=== PATIENT | female | born 1985 | race Caucasian/White ===

== ENCOUNTER 2025-01-13 18:55 | Emergency (ER) | payer MEDICAID, SELFPAY ==
[2025-01-13] VITALS (16 sets, daily range): BP systolic 113–146; BP diastolic 54–95; PULSE 63–84; RESP 18; TEMP 36.8; O2SAT 96–100
--- NOTE | 2025-01-13 18:45 | RT.EKG_ITS ---
APPROVED REPORT Exam: Resting ECG Reason for Exam: Chest pain Patient Location: E HR:73 bpm ECG Measurements Heart Rate 73 AXIS SC 171 P 39 QRSd 77 QRS -2 QT 360 T -2 QTc 397 Conclusion Sinus rhythm...normal P axis, V-rate 60- 99
--- NOTE | 2025-01-13 19:07 | W.ED.GENAD ---
Discharge Plan Disposition Patient Disposition: Home Condition: Stable Discharge Details Clinical Impression: Chest pain Primary Care Provider: None,None ED Provider: Terrell Ball Discharge Instructions Additional Instructions: Your blood work did not show any concerning findings at this time. You could be suffering from a viral illness. Try to drink plenty fluids to stay hydrated. Follow-up with your primary care provider as needed. If you feel significantly more ill or have new symptoms such as persistent vomiting return to emergency department for reevaluation. HPI General Mode of arrival: EMS. Date/Time Provider Initiated Documentation: 01/13/25 19:02. Limitations to Documentation: no limitations. Information obtained by: patient. History of Present Illness 39 year old F presents to the emergency department with the chief complaint of chest pain, sore throat, body aches, anxiety, described as moderate, Patient started experiencing this week(s) (1) and it has been constant. No relieving factors improve symptom(s), No exacerbating factors reported . Patient notes no other symptoms.. Patient did receive the following treatments prior to arrival, none Related Data Allergies Allergy/AdvReac Type Severity Reaction Status Date / Time gabapentin Allergy Nausea Verified 01/13/25 19:05 ibuprofen (From Motrin) Allergy Nausea Verified 01/13/25 19:05 ranitidine (From Zantac) Allergy Nausea Verified 01/13/25 19:05 adhesive tape AdvReac Skin Rash Verified 01/13/25 19:05 aspirin AdvReac Other (See Verified 01/13/25 19:05 Comment) morphine AdvReac Other (See Verified 01/13/25 19:05 Comment) General Stated Complaint: Chest Pain LINDA: 3 Review of Systems All systems reviewed & are unremarkable except as noted in HPI and below Constitutional Constitutional: Denies chills, Denies fever(s) and Denies weakness ENT Ears, Nose, Mouth, and Throat: Reports sore throat Cardiovascular Cardiovascular: Reports chest pain and Denies dyspnea Respiratory Respiratory: Denies cough and Denies dyspnea Gastrointestinal Gastrointestinal: Reports nausea and Denies vomiting Neurologic Neurologic: Denies weakness Exam Const General: no acute distress Orientation: alert HENMT Head: normal to inspection Ears: external ears normal General nose exam: external nose normal Mouth: moist mucous membranes Eyes General: appearance normal, both eyes and all related structures Neck Neck: normal visual inspection Resp Effort & Inspection: normal respiratory effort and able to speak in complete sentences Auscultation: clear to auscultation bilaterally Cardio Jugular venous pressure: no JVD Rate: regular rate Skin General skin exam: no rashes or lesions noted Neuro General: patient alert and patient oriented x3 Extrem General: normal to inspection Psych Mental Status: mental status grossly normal Course Vital Signs Vital signs: Vital Signs Temperature 36.8 C 01/13/25 18:55 Pulse 79 01/13/25 18:55 Respiratory Rate 18 01/13/25 18:55 Blood Pressure 138/94 H 01/13/25 18:55 Pulse Oximetry 99 01/13/25 18:55 Temperature 36.8 C 01/13/25 18:55 Temperature Source Oral 01/13/25 18:55 Pulse 79 01/13/25 18:55 Respiratory Rate 18 01/13/25 18:55 Blood Pressure 138/94 H 01/13/25 18:55 Pulse Oximetry 99 01/13/25 18:55 Oxygen Delivery Method Room Air 01/13/25 18:55 Oxygen Flow Rate 0 01/13/25 18:55 Pain Level 10 01/13/25 18:55 Medical Decision Making 3-year-old female states she has been homeless for several years and recently moved to the area from the [facility], who states that she has a history of anxiety, IBS who comes in with 1 to 2 days of intermittent chest pain, sore throat, body aches and chills. Also notes some nausea. No severe abdominal pain or vomiting. She is speaking in full sentences and appears anxious. She has a normal posterior pharynx with a midline uvula. No submandibular swelling, no pain over the hyoid or restricted neck movements. She has no meningismus, clear lung sounds, soft nontender abdomen. Unclear etiology of her symptoms will check CBC, CMP and troponins as well as a Fluvid. Given her lack of abdominal tenderness I doubt intra-abdominal abdominal pathology such as small bowel obstruction and do not feel emergent imaging of her abdomen is indicated. She has no tachycardia, PERC negative so I doubt PE. No findings on exam to suggest entities such as retropharyngeal abscess, epiglottitis or peritonsillar abscess. Patient sleeping on reassessment and awakens easily to voice. Labs show no emergent findings. She states that she is only in the area for 80 days and does not want to be set up with a primary care in the area. She will follow-up with her PCP as needed and return precautions given. Differential Diagnosis Differential Diagnosis: anxiety, ibs, flu Lab Data Lab results reviewed: Yes I reviewed the patient's lab results. ECG Data Attestation: I personally reviewed and interpreted this ECG (s) as follows: Prior ECG tracings: not available for review Interpretation: sinus rate of 73 no stemi PFSH All Active Problems (Updated 01/13/25 @ 20:48 by Terrell Ball MD) Chest pain (Acute) Social History Smoking/Tobacco Use Status: Never Smoking risk assessment performed?: Yes Alcohol Intake: never Drug use: Never Substance use type: does not use Housing: homeless Do you feel safe at home: Yes Do you feel safe in your relationship?: Yes
[2025-01-13 19:33] LABS: Abs Immature Grans 0.02 10^3/uL (0.0-0.06); HCT 37.6 % (36.0-46.0); HGB 12.7 g/dL (11.2-15.7); Immature Grans % 0.3 %; MCH 34.4 pg (27.0-33.0); MCHC 33.8 % (32.0-36.0); MCV 102 fL (80-95); MPV 9.6 fL (8.0-11.0); Platelet Count 292 10^3/uL (130-400); RBC 3.69 10^6/uL (3.93-5.22); RDW 11.4 % (11.7-14.6); RDW-SD 43.1 fL; WBC 7.27 10^3/uL (4.4-10.8)
[2025-01-13] MEDS: Droperidol 5 MG/2 ML VIAL 2.5 MG IVP (19:44)
[2025-01-13 19:48] LABS: ALT 12 U/L (14-59); AST 9 U/L (15-37); Albumin 3.5 g/dL (3.4-5.0); Alkaline Phosphatase 64 U/L (46-116); Anion Gap 9.2 mmol/L (3-11); BUN 9 mg/dL (7-18); Bilirubin, Total 0.2 mg/dL (0.2-1.0); CO2 26.8 mmol/L (21.0-32.0); Calcium 8.1 mg/dL (8.5-10.1); Chloride 105 mmol/L (98-107); Glucose 90 mg/dL (74-106); Magnesium 2.6 mg/dL (1.8-2.4); Potassium 3.3 mmol/L (3.5-5.1); Sodium 141 mmol/L (136-145); Total Protein 7.0 g/dL (6.4-8.2); Troponin I 4 ng/L (<or=51)
[2025-01-13 19:54] LABS: HCG Qual (Serum) Negative
[2025-01-13 20:08] LABS: COVID-19 PCR Negative (Negative); RSV PCR Negative (Negative)
== END 2025-01-13 21:49 | disposition home or self-care (01) ==
PROVIDERS: Emergency Provider Emergency Medicine
DX: R07.9 Chest pain, unspecified (principal); J02.9 Acute pharyngitis, unspecified
CPT/HCPCS: 99284 ×2; 96374; 80053; 87637; 93005; 83735; 84484; 84703; 85025; 93010; J1790

== ENCOUNTER 2025-01-20 13:36 | Emergency (ER) | payer MEDICAID, SELFPAY ==
[2025-01-20 13:47] VITALS: BP 130/88; PULSE 88; RESP 20; TEMP 37.2; O2SAT 96
--- NOTE | 2025-01-20 14:00 | RT.EKG_ITS ---
APPROVED REPORT Exam: Resting ECG Reason for Exam: Chest Pain Patient Location: E HR:82 bpm ECG Measurements Heart Rate 82 AXIS WI 173 P 58 QRSd 76 QRS 38 QT 362 T 26 QTc 424 Conclusion Sinus rhythm...normal P axis, V-rate 60- 99 No Occlusion AR
[2025-01-20 14:01] VITALS: BP 130/88; PULSE 88; RESP 20; TEMP 37.2; O2SAT 96
--- NOTE | 2025-01-20 14:21 | W.ED.GENAD ---
Discharge Plan Disposition Patient Disposition: Home Discharge Details Clinical Impression: Nausea & vomiting, Ketonuria Primary Care Provider: None,None ED Provider: Mitul Sullivan [place] Meds and New Rx's Prescriptions: Continued polyethylene glycol 3350 [ClearLax] 17 gram/dose powder 17 g PO DAILY Elmiron 100 mg capsule 100 mg PO TID acyclovir 400 mg tablet 400 mg PO BID olanzapine 2.5 mg tablet 2.5 mg PO QHS bupropion HCl 100 mg tablet sustained-release 12 hr 100 mg PO QHS pantoprazole 20 mg tablet,delayed release (DR/EC) 20 mg PO QAM hyoscyamine sulfate 0.375 mg tablet extended release 12 hr 0.375 mg PO Q12H hydrocortisone 2.5 % cream 1 applic topical DAILY PRN albuterol sulfate [Ventolin HFA] 90 mcg/actuation HFA aerosol inhaler 2 inh inhalation Q8H PRN ferrous sulfate 325 mg (65 mg iron) tablet,delayed release (DR/EC) 325 mg PO Q OTHER DAY fluticasone propionate [Allergy Relief (fluticasone)] 50 mcg/actuation spray,suspension 1 spray intranasal DAILY PRN Rx Instructions: administer into each nostril acetaminophen 500 mg capsule 500 mg PO QID PRN escitalopram oxalate 10 mg tablet 10 mg PO DAILY budesonide-formoterol [Symbicort] 80-4.5 mcg/actuation HFA aerosol inhaler 1 inh inhalation ONCE Lactobacillus acidophilus 1 billion cell capsule 1,000 mmu cells PO DAILY Discharge Instructions Additional Instructions: You were seen in the emergency department for your nausea and bodyaches. Your swabs showed that you do not have COVID, flu, nor RSV. You likely have another respiratory virus. You should have your count repeated. Please return if you develop chest pain that does not stop or if you have any other concern. You will be contacted to establish care with a primary care. Stand Alone Forms: Portal Information Discharge Data Discharge Date/Time-TO BE ENTERED AT DEPARTURE: 01/20/25 16:04 HPI General Date/Time Provider Initiated Documentation: 01/20/25 13:52. HPI Narrative: MDM This is an overall well-appearing normothermic and not tachycardic 39-year-old female with nausea vomiting chest pain which she will undergo troponin testing to assess for cardiac injury. ECG shows narrow complex rhythm. There are no T wave inversioins. Her intervals are within normal limits. No significant right upper quadrant tenderness to suggest acute cholecystitis. She lacks significant risk factors for ACS as she has no history of hypertension or hyperlipidemia or diabetes. Anticipate if her labs are reassuring she will be appropriate for outpatient follow-up. She is PERC negative so I did not find a D-dimer. No significant headache to suggest increased risk of subdural empyema. She has no crepitance to suggest increased risk for esophageal rupture. She has a soft nontender abdomen making my suspicion low for appendicitis. No epigastric tenderness acute pancreatitis. No significant posterior oropharynx erythema to suggest strep pharyngitis. Good range of motion making my suspicious low for retropharyngeal abscess. Uvula midline so doubt peritonsillar abscess. No pain out of proportion to suggest necrotizing soft tissue infection. Given body aches and cough will swab for COVID influenza and RSV. Not hypotensive nor a dialysis patient making my suspicion low for cardiac tamponade. Equal breath sounds and no chest trauma to suggest increased risk for pneumothorax. Patient does not have significant wheeze to suggest benefit for nebulization treatment. Will prescribe outpatient inhaler. Bilateral TMs clear so I am not suspicious for acute acute otitis media. 3 PM Comprehensive metabolic panel with no JADON. Mild hyperglycemia but no anion gap. Normal bicarbonate Test not consistent with DKA. Normal reassuring lipase. CBC: Anemia thrombocytopenia and leukocytosis. Negative hCG. Reassuring normal initial troponin. Chest x-ray with no acute cardiopulmonary process. 3:45 PM Urinalysis with trace ketonuria but nitrite leuk esterase negative not consistent with UTI. 3:57 PM Patient had a reassuring repeat troponin within normal delta. We discussed that she should return to the ED if she could not stop vomiting or if she had any syncopal episodes. She understood her indications. I have asked healthy coordinator Yvette to have her establish with primary care provider. Will discharge her with a short course of ondansetron needed for nausea. Repeat reassuring vitals. HPI The patient presents for evaluation of cough, sore throat, and earache. She has been experiencing a persistent cough for the past 4 days, accompanied by vomiting and an inability to consume food. She also reports a sore throat and earaches. She has not had any fevers or colds. She is not aware of any sick contacts. She has a known history of asthma but reports no previous instances of blood clots in her legs or lungs. She is not currently on any anticoagulant therapy. Supplemental Information She has a scheduled appointment with her [employer] tomorrow. She has a history of irritable bowel syndrome (IBS) and genital herpes. Exam General: Well-appearing in no acute distress speaking in complete sentences. Head: Normocephalic, atraumatic. Eye: Extraocular eye movements intact. No conjunctival injection. No scleral icterus. Ear, nose, mouth, throat: Grossly normal inspection. Normal voice, handling secretions normally. Bilateral TMs clear. No significant posterior oropharynx erythema. Uvula midline. Neck: Trachea midline. Good range of motion of the neck. Cardiovascular: Well-perfused distal extremities. Regular rate and rhythm. Respiratory: Nonlabored respiration. Clear lungs bilaterally Gastrointestinal: Nondistended abdomen. Soft. Nontender. No rebound. Guarding. Musculoskeletal: No edema. Moving all 4 extremities spontaneously. Skin: Normal for age and race, grossly normal temperature and turgor. No acute rash. Neurologic: Alert and appropriate, no apparent acute deficits. Psychiatric: Mood and manner are appropriate. Grooming and personal hygiene are appropriate. Related Data Home Medications Medication Instructions Recorded Confirmed Lactobacillus acidophilus 1 1,000 mmu cells PO DAILY 01/13/25 01/20/25 billion cell capsule acetaminophen 500 mg capsule 500 mg PO QID PRN 01/13/25 01/20/25 acyclovir 400 mg tablet 400 mg PO BID 01/13/25 01/20/25 albuterol sulfate 90 mcg/actuation 2 inh inhalation Q8H PRN 01/13/25 01/20/25 aerosol inhaler (Ventolin HFA) budesonide-formoterol HFA 80 1 inh inhalation ONCE 01/13/25 01/20/25 mcg-4.5 mcg/actuation aerosol inhaler (Symbicort) bupropion HCl 100 mg tablet,12 hr 100 mg PO QHS 01/13/25 01/20/25 sustained-release escitalopram oxalate 10 mg tablet 10 mg PO DAILY 01/13/25 01/20/25 ferrous sulfate 325 mg (65 mg 325 mg PO Q OTHER DAY 01/13/25 01/20/25 iron) tablet,delayed release fluticasone propionate 50 1 spray intranasal DAILY PRN 01/13/25 01/20/25 mcg/actuation nasal spray,suspension (Allergy Relief (fluticasone)) hydrocortisone 2.5 % topical cream 1 applic topical DAILY PRN 01/13/25 01/20/25 hyoscyamine sulfate 0.375 mg 0.375 mg PO Q12H 01/13/25 01/20/25 tablet,extended release,12 hr olanzapine 2.5 mg tablet 2.5 mg PO QHS 01/13/25 01/20/25 pantoprazole 20 mg tablet,delayed 20 mg PO QAM 01/13/25 01/20/25 release pentosan polysulfate sodium 100 mg 100 mg PO TID 01/13/25 01/20/25 capsule (Elmiron) polyethylene glycol 3350 17 17 g PO DAILY 01/13/25 01/20/25 gram/dose oral powder (ClearLax) Allergies Allergy/AdvReac Type Severity Reaction Status Date / Time gabapentin Allergy Nausea Verified 01/13/25 19:05 ibuprofen (From Motrin) Allergy Nausea Verified 01/13/25 19:05 ranitidine (From Zantac) Allergy Nausea Verified 01/13/25 19:05 adhesive tape AdvReac Skin Rash Verified 01/13/25 19:05 aspirin AdvReac Other (See Verified 01/13/25 19:05 Comment) morphine AdvReac Other (See Verified 01/13/25 19:05 Comment) General Stated Complaint: RespSymp LINDA: 3 Course Vital Signs Vital signs: Vital Signs Temperature 37.2 C 01/20/25 13:47 Pulse 88 01/20/25 13:47 Respiratory Rate 20 01/20/25 13:47 Blood Pressure 130/88 01/20/25 13:47 Pulse Oximetry 96 01/20/25 13:47 Temperature 37.2 C 01/20/25 14:01 Pulse 88 01/20/25 14:01 Respiratory Rate 20 01/20/25 14:01 Respiratory Effort Normal 01/20/25 14:01 Respiratory Depth Normal 01/20/25 14:01 Blood Pressure 130/88 01/20/25 14:01 Blood Pressure Position Sitting 01/20/25 14:01 Pulse Oximetry 96 01/20/25 14:01 Oxygen Delivery Method Room Air 01/20/25 14:01 Oxygen Flow Rate 0 01/20/25 14:01 PFSH All Active Problems (Updated 01/20/25 @ 15:47 by Mitul Sullivan MD) Ketonuria (Acute) Nausea & vomiting (Acute) Chest pain (Acute) Social History Smoking/Tobacco Use Status: Never Smoking risk assessment performed?: Yes Alcohol Intake: never Drug use: Never Substance use type: does not use Housing: homeless Do you feel safe at home: Yes Do you feel safe in your relationship?: Yes
--- NOTE | 2025-01-20 14:31 | DI.RAD_ITS ---
Exam(s) XR CHEST 2V PA LATERAL EXAM: XR CHEST 2V PA LATERAL CLINICAL HISTORY: Chest pain TECHNIQUE: 2D digital imaging was performed of the chest. Two images were obtained. PA and lateral views were obtained. COMPARISON: No exams were available for comparison FINDINGS: MEDIASTINUM: Normal. HEART: Normal. PULMONARY VASCULATURE: Normal. LUNGS: Clear. PLEURAL SPACE: No pleural effusion or pneumothorax. BONE:Within normal limits for the patient's age. OTHER FINDINGS:Normal. IMPRESSION: No acute pulmonary findings. DATA REPOSITORY: RADIATION DOSE DELIVERED:
[2025-01-20 14:32] LABS: Abs Immature Grans 0.01 10^3/uL (0.0-0.06); HCT 35.1 % (36.0-46.0); HGB 11.8 g/dL (11.2-15.7); Immature Grans % 0.1 %; MCH 34.4 pg (27.0-33.0); MCHC 33.6 % (32.0-36.0); MCV 102 fL (80-95); MPV 10.1 fL (8.0-11.0); Platelet Count 259 10^3/uL (130-400); RBC 3.43 10^6/uL (3.93-5.22); RDW 11.2 % (11.7-14.6); RDW-SD 42.6 fL; WBC 8.09 10^3/uL (4.4-10.8)
[2025-01-20] MEDS: Normal Saline 500 ML IV (14:34)
[2025-01-20] MEDS: Mylanta Suspension 30 ML CUP PO (14:37)
[2025-01-20] MEDS: Ondansetron 4 MG/2 ML VIAL IVP (14:38)
[2025-01-20] MEDS: Famotidine 20 MG/2 ML VIAL 40 MG IVP (14:38)
[2025-01-20] MEDS: Budesonide/Formoterol 160/4.5 6 GM 60 PUFF INH IH (14:44)
[2025-01-20 14:51] LABS: ALT 11 U/L (14-59); AST 11 U/L (15-37); Albumin 3.2 g/dL (3.4-5.0); Alkaline Phosphatase 66 U/L (46-116); Anion Gap 10.3 mmol/L (3-11); BUN 11 mg/dL (7-18); Bilirubin, Total 0.1 mg/dL (0.2-1.0); CO2 24.7 mmol/L (21.0-32.0); Calcium 7.4 mg/dL (8.5-10.1); Chloride 108 mmol/L (98-107); Glucose 110 mg/dL (74-106); Lipase 31 U/L (<78); Potassium 3.5 mmol/L (3.5-5.1); Sodium 143 mmol/L (136-145); Total Protein 6.4 g/dL (6.4-8.2); Troponin I 6 ng/L (<or=51)
[2025-01-20 14:57] LABS: HCG Qual (Serum) Negative
[2025-01-20 15:27] LABS: COVID-19 PCR Negative (Negative); RSV PCR Negative (Negative)
[2025-01-20 15:41] LABS: Glucose Negative (Negative)
[2025-01-20 15:55] LABS: Troponin I 6 ng/L (<or=51)
[2025-01-20 16:00] VITALS: BP 140/87; PULSE 67; RESP 16; O2SAT 98
[2025-01-20] MEDS: Ondansetron O.D.T. 4 MG TABEF, 3 TABS/BTL PO (16:05)
== END 2025-01-20 16:04 | disposition home or self-care (01) ==
PROVIDERS: Emergency Provider Emergency Medicine
DX: R11.2 Nausea with vomiting, unspecified (principal); R82.4 Acetonuria; R07.89 Other chest pain; J98.8 Other specified respiratory disorders
CPT/HCPCS: 99283; 99284; 96374; 96375; 36415; 80053; 83690; 87637; 93005; 71046; 81003; 84484; 84703; 85025; 93010; J2405

== ENCOUNTER 2025-01-21 10:30 | Outpatient (REF) | payer MEDICAID, SELFPAY ==
--- NOTE | 2025-01-21 09:56 | PAPFT_PTH ---
PATIENT: Caroline Ramos LOC: [facility] U#:[id number] AGE/SX: 39/F ROOM: RE01/21/[address]: Mehnaz Pemberton DO : 1985 BED: DIS: 01/21/2025 SPEC #: [id number] RECD: 01/21/25 13:02 STATUS: CHENTE RE #: [id number] JOEL: 01/21/25 09:[address]: Mehnaz Pemberton DEPT: [facility] Cytology RECD BY: Shannon Tobias ENTERED: 01/21/25 13:02 SP TYPE: PAPFT OTHR DR: None Tissues: 1 - CX/ENDOCX FOR PAP SMEARS Procedures: PAP THIN PREP/UVM Screening HPV DNA PROBE Comments: [id number] (HPV 16 & 18/45) (CHLAMYDIA/GC)
[2025-01-22 11:48] LABS: Chlamydia Result Negative (Negative); GC Result Negative (Negative)
== END 2025-01-21 10:31 | disposition home or self-care (01) ==
LOC: LBN 10:30
PROVIDERS: Visit Provider Obstetrics & Gynecology
DX: Z12.4 Encounter for screening for malignant neoplasm of cervix (principal)
CPT/HCPCS: 87491; 87591; 88142; 87624

== ENCOUNTER 2025-03-05 13:52 | Emergency (ER) | payer MEDICAID, SELFPAY ==
[2025-03-05 13:57] VITALS: BP 142/93; PULSE 76; RESP 16; TEMP 37; O2SAT 97
--- NOTE | 2025-03-05 14:00 | DI.US_ITS ---
Exam(s) US PELVIS TRANSVAGINAL EXAM: US PELVIS TRANSVAGINAL CLINICAL HISTORY: left adnexal pain, vaginal bleeding TECHNIQUE: Transabdominal and transvaginal imaging was performed using standard protocol. COMPARISON: No exams were available for comparison FINDINGS: The bladder is unremarkable. UTERUS: Anteverted. 7.6 x 3.8 x 4.3 cm Endometrium: 6 mm Myometrium: No evidence of fibroids. Incidental 6 x 4 mm sub endometrial cyst. Cervix: Trace fluid. OVARIES: Right: Cyst or mass: None. Left: Cyst or mass: None. DOPPLER: Color: Symmetric and uniform flow to both ovaries. No hyperemia. CUL-DE-SAC: Free fluid: None. IMPRESSION: 1. Normal-size uterus with endometrial stripe within normal limits. 2. Unremarkable bilateral ovaries. DATA REPOSITORY:
[2025-03-05 15:18] LABS: Glucose Negative (Negative)
[2025-03-05 15:30] LABS: C & S Indicated? No; RBC >50 HPF (0-2); WBC 0-2 HPF (0-5)
--- NOTE | 2025-03-07 14:59 | W.ED.GENAD ---
Discharge Plan Disposition Patient Disposition: Against Medical Advice Condition: Stable Discharge Details Clinical Impression: Abnormal vaginal bleeding Primary Care Provider: None,None ED Provider: Shannon Colunga Home Meds and New Rx's Prescriptions: Continued polyethylene glycol 3350 [ClearLax] 17 gram/dose powder 17 g PO DAILY Elmiron 100 mg capsule 100 mg PO TID acyclovir 400 mg tablet 400 mg PO BID olanzapine 2.5 mg tablet 2.5 mg PO QHS bupropion HCl 100 mg tablet sustained-release 12 hr 100 mg PO QHS pantoprazole 20 mg tablet,delayed release (DR/EC) 20 mg PO QAM hyoscyamine sulfate 0.375 mg tablet extended release 12 hr 0.375 mg PO Q12H hydrocortisone 2.5 % cream 1 applic topical DAILY PRN albuterol sulfate [Ventolin HFA] 90 mcg/actuation HFA aerosol inhaler 2 inh inhalation Q8H PRN ferrous sulfate 325 mg (65 mg iron) tablet,delayed release (DR/EC) 325 mg PO Q OTHER DAY fluticasone propionate [Allergy Relief (fluticasone)] 50 mcg/actuation spray,suspension 1 spray intranasal DAILY PRN Rx Instructions: administer into each nostril acetaminophen 500 mg capsule 500 mg PO QID PRN escitalopram oxalate 10 mg tablet 10 mg PO DAILY budesonide-formoterol [Symbicort] 80-4.5 mcg/actuation HFA aerosol inhaler 1 inh inhalation ONCE Lactobacillus acidophilus 1 billion cell capsule 1,000 mmu cells PO DAILY Discharge Instructions Additional Instructions: You are leaving after refusing full physical assessment against our recommendation I cannot fully evaluate you without a complete blood count and chemistry Your ultrasound today did not show acute abnormality Your urinalysis shows blood likely consistent with vaginal bleeding You will need to have a full assessment, I do recommend following up with your primary care physician and [employer] REPRESENTATIVE Stand Alone Forms: Portal Information Referrals: Maria Dolores Chavez [ [facility] STAFF PHYSICIAN, Medicine] Discharge Data Discharge Date/Time-TO BE ENTERED AT DEPARTURE: 03/05/25 15:45 HPI General Date/Time Provider Initiated Documentation: 03/05/25 13:52. HPI Narrative: This 39-year-old female presents via ambulance with report of vaginal bleeding and cramping. She states that this has been ongoing for the past several months. She states that she is concerned regarding the longevity. She denies any weakness or dizziness. She is currently homeless. States she is going through 7 pads daily. Patient states she is unable to take exogenous hormones secondary to report of allergy. Patient states she is sexually active and monogamous with her . She states this has been ongoing for extended period of time. When asked what changed today that concerned her she states that she just continues to bleed . Denies any chance of or sexually transmitted disease. Denies history of coagulopathy. Related Data Home Medications ?Medication ?Instructions ?Recorded ?Confirmed Lactobacillus acidophilus 1 1,000 mmu cells PO DAILY 01/13/25 01/21/25 billion cell capsule acetaminophen 500 mg capsule 500 mg PO QID PRN 01/13/25 01/21/25 acyclovir 400 mg tablet 400 mg PO BID 01/13/25 01/21/25 albuterol sulfate 90 mcg/actuation 2 inh inhalation Q8H PRN 01/13/25 01/21/25 aerosol inhaler (Ventolin HFA) budesonide-formoterol HFA 80 1 inh inhalation ONCE 01/13/25 01/21/25 mcg-4.5 mcg/actuation aerosol inhaler (Symbicort) bupropion HCl 100 mg tablet,12 hr 100 mg PO QHS 01/13/25 01/21/25 sustained-release escitalopram oxalate 10 mg tablet 10 mg PO DAILY 01/13/25 01/21/25 ferrous sulfate 325 mg (65 mg 325 mg PO Q OTHER DAY 01/13/25 01/21/25 iron) tablet,delayed release fluticasone propionate 50 1 spray intranasal DAILY PRN 01/13/25 01/21/25 mcg/actuation nasal spray,suspension (Allergy Relief (fluticasone)) hydrocortisone 2.5 % topical cream 1 applic topical DAILY PRN 01/13/25 01/21/25 hyoscyamine sulfate 0.375 mg 0.375 mg PO Q12H 01/13/25 01/21/25 tablet,extended release,12 hr olanzapine 2.5 mg tablet 2.5 mg PO QHS 01/13/25 01/21/25 pantoprazole 20 mg tablet,delayed 20 mg PO QAM 01/13/25 01/21/25 release pentosan polysulfate sodium 100 mg 100 mg PO TID 01/13/25 01/21/25 capsule (Elmiron) polyethylene glycol 3350 17 17 g PO DAILY 01/13/25 01/21/25 gram/dose oral powder (ClearLax) Allergies Allergy/AdvReac Type Severity Reaction Status Date / Time naproxen Allergy Mild Unknown Verified 03/05/25 14:01 gabapentin Allergy Nausea Verified 03/05/25 14:01 ibuprofen (From Motrin) Allergy Nausea Verified 03/05/25 14:01 ranitidine (From Zantac) Allergy Nausea Verified 03/05/25 14:01 adhesive tape AdvReac Skin Rash Verified 03/05/25 14:01 aspirin AdvReac Other (See Verified 03/05/25 14:01 Comment) morphine AdvReac Other (See Verified 03/05/25 14:01 Comment) General Stated Complaint: [employer] REPRESENTATIVE LINDA: 3 Exam Narrative Exam Narrative: Alert and oriented 39-year-old female, tangential, hyperactive, mild tenderness to suprapubic region no pallor no flank tenderness, wearing a depend with a small stripe of blood only Course Vital Signs Vital signs: Vital Signs Temperature 37.0 C 03/05/25 13:57 Pulse 76 03/05/25 13:57 Respiratory Rate 16 03/05/25 13:57 Blood Pressure 142/93 H 03/05/25 13:57 Pulse Oximetry 97 03/05/25 13:57 Temperature 37.0 C 03/05/25 13:57 Temperature Source Oral 03/05/25 13:57 Pulse 76 03/05/25 13:57 Respiratory Rate 16 03/05/25 13:57 Blood Pressure 142/93 H 03/05/25 13:57 Blood Pressure Position Sitting 03/05/25 13:57 Pulse Oximetry 97 03/05/25 13:57 Oxygen Delivery Method Room Air 03/05/25 13:57 Oxygen Flow Rate 0 03/05/25 13:57 Lab/Test Results Lab/Test Results: Laboratory Tests Range/Units 03/05/25 03/05/25 03/05/25 14:03 14:04 15:02 WBC Cancelled RBC Cancelled Hgb Cancelled Hct Cancelled MCV Cancelled MCH Cancelled MCHC Cancelled RDW Cancelled Plt Count Cancelled MPV Cancelled Immature Gran % Cancelled Neutrophils % Cancelled Band Neutrophils % Cancelled Lymphocytes % Cancelled Atypical Lymphs % Cancelled Monocytes % Cancelled Eosinophils % Cancelled Basophils % Cancelled Metamyelocytes % Cancelled Myelocytes % Cancelled Promyelocytes % Cancelled Other Cells % Cancelled Nucleated RBC % Cancelled Absolute Neutrophils Cancelled Absolute Lymphocytes Cancelled Absolute Monocytes Cancelled Absolute Eosinophils Cancelled Absolute Basophils Cancelled RBC Morphology Cancelled Polychromasia Cancelled Hypochromasia Cancelled Poikilocytosis Cancelled Basophilic Stippling Cancelled Anisocytosis Cancelled Microcytosis Cancelled Macrocytosis Cancelled Spherocytes Cancelled Tear Drop Cells Cancelled Ovalocytes Cancelled Stomatocytes Cancelled Cruz-Energy Bodies Cancelled [place] Cells/Echinocytes Cancelled Acanthocytes (Spur) Cancelled Schistocytes Cancelled Sodium Cancelled Potassium Cancelled Chloride Cancelled Carbon Dioxide Cancelled Anion Gap Cancelled BUN Cancelled Creatinine Cancelled Est GFR (CKD-EPI 2020) Cancelled Glucose Cancelled Calcium Cancelled Total Bilirubin Cancelled AST Cancelled ALT Cancelled Alkaline Phosphatase Cancelled Total Protein Cancelled Albumin Cancelled Serum HCG, Qual Cancelled Urine Color (Yellow) Red Urine Clarity (Clear) Cloudy Urine pH (5-8) 6.5 Ur Specific [place] (1.005-1.025) 1.025 Urine Protein (Neg-Trace) mg/dL 100 H Urine Ketones (Negative) mg/dL Trace H Urine Blood (Negative) Large H Urine Nitrite (Negative) Negative Urine Bilirubin (Negative) Negative Urine Urobilinogen (Up to 0.2) mg/dL 1.0 H Ur Leukocyte Esterase (Negative) Negative Urine RBC (0-2) HPF >50 H Urine WBC (0-5) HPF 0-2 Ur Epithelial Cells (Negative) HPF Few Urine Crystals (Negative) HPF Negative Urine Bacteria (Negative) HPF Rare Urine Casts (Negative) LPF Negative Urine Mucus (Negative) Negative Ur Culture Indicated? No Urine Glucose (Negative) mg/dL Negative POC- Test(urine) Negative Medical Decision Making Results: Pelvic ultrasound per radiology interpretation of my review does not show significant acute abnormality, patient is declining CBC and CMP as she states she is allergic to blood draws and allergic to the IV catheter, patient is also declining a pelvic exam, she states she just had this done 1 week ago Assessment and plan: This is a 39-year-old female presenting with pelvic pain and vaginal bleeding. This is a very challenging assessment secondary to patient being quite agitated, experiencing some rapid speech but otherwise being fully alert and oriented. Patient is making multiple demands in the emergency department and declining test secondary to report of unknown allergic reaction . When asked patient what her allergic reaction to having a blood draw performed, patient states you are not respecting my body . At this time I told patient that I am unable to fully assess her for her stated complaint as she is refusing all of the additional interventions and diagnostics that I would typically perform for this complaint. Her is in the room she does seem alert and oriented although a poor historian secondary to her tangential thought process and rapid speech. Patient is now requesting to leave and demanding transportation home with a Voucher. Patient made aware that we were unable to provide this service but there is RCT in the community that may be able to assist. Patient is leaving AGAINST MEDICAL ADVICE and refusing to have a full assessment. She is encouraged to return if she would like assessment and to follow-up with her primary care physician at her scheduled appointment and or [employer] REPRESENTATIVE in the outpatient setting. Patient has been stable throughout this assessment but I am unable to fully evaluate her secondary to her reported allergy symptoms and demands. PFSH All Active Problems (Updated 03/05/25 @ 15:39 by JONNY Akins) Abnormal vaginal bleeding (Acute) History of pelvic inflammatory disease (Acute) History of anemia (Acute) Family history of GI malignancy (Acute) Well woman exam with routine gynecological exam (Acute) Social History Smoking/Tobacco Use Status: Never Smoking risk assessment performed?: Yes Alcohol Intake: never Drug use: Never Substance use type: does not use Housing: homeless Do you feel safe at home: Yes Do you feel safe in your relationship?: Yes
== END 2025-03-05 15:45 | disposition left against medical advice (07) ==
PROVIDERS: Emergency Provider Physician Assistant
DX: N93.9 Abnormal uterine and vaginal bleeding, unspecified (principal); R10.8A3 Suprapubic tenderness
CPT/HCPCS: 80053; 81025; 99283; 76830; 76856; 81003; 81015; 84703; 85025